=== PATIENT | female | born 1945 | race Caucasian/White ===

== ENCOUNTER 2017-10-04 09:19 | Emergency (ER) | payer MEDICARE, MEDICAID, SELFPAY ==
[2017-10-04 09:20] VITALS: BMI 32.9
--- NOTE | 2017-10-04 09:31 | ED.VISSUMM ---
- ER Visit Summary Date of Service: 10/04/17 Chief Complaint: [] Unresponsive at [facility] asystolic History of Present Illness: The patient is a 72 F [] found in [facility] bed asystolic unresponsive by [facility] staff paramedics were called on their arrival they found her to be asystolic on the monitor no vital signs immediately began ACLS protocol she was intubated IV established through I/O, she was given epinephrine transport to the hospital under ACLS. Her downtime is very long exact time unknown, on arrival she is asystolic she has no vital sign she is unresponsive cardiac echo shows no heartbeat. We continued aggressive CPR, breath sounds were symmetric, her abdomen was slightly distended she had a bandage over the right lower quadrant she had some scattered abrasions and contusions to her extremities possibly related to IV starts. Despite aggressive ACLS protocol management she remained asystolic never regained hemodynamic perfusing rhythm, persistent asystole failed to respond to resuscitation and she was declared 923 am Patient recently had what sounds like a reversal of with re anastomosis to remove colonoscopy bag a few days ago, she has a history of lung cancer, prior history for colon cancer, coronary artery disease COPD Physical Examination: [] ET Combitube in place, monitor shows asystole there is no heartbeat or pulse her breath sounds are symmetric the abdomen is obese slightly distended there is a bandage to the right lower abdomen there are scattered contusion and abrasions primarily to the upper extremities possibly a prior IV starts she is unresponsive Test Results: [] Emergency Department Course and Treatment: [] Given all the above we spoke with the family informed him of the above we will identify her family physician mario and proceed with further disposition Treatment Plan: [] Disposition: [] Transfer to care of [facility] pending conversation Impression: [] Asystole, failed to respond to ACLS, cardiopulmonary arrest This note was generated with [employer] dictation software. It may contain incorrect words, spelling, and punctuation that were not noted in review of the chart prior to signing ED Disposition - Plan for ED Patient: Chief Complaint: CPR Referrals: Malik Benavides MD [Primary Care Provider] -
--- NOTE | 2017-10-04 09:37 | ED.DCSUM_ITS ---
- ER Visit Summary Date of Service: 10/04/17 Chief Complaint: [] Unresponsive at [facility] asystolic History of Present Illness: The patient is a 72 F [] found in [facility] bed asystolic unresponsive by [facility] staff paramedics were called on their arrival they found her to be asystolic on the monitor no vital signs immediately began ACLS protocol she was intubated IV established through I/O, she was given epinephrine transport to the hospital under ACLS. Her downtime is very long exact time unknown, on arrival she is asystolic she has no vital sign she is unresponsive cardiac echo shows no heartbeat. We continued aggressive CPR, breath sounds were symmetric, her abdomen was slightly distended she had a bandage over the right lower quadrant she had some scattered abrasions and contusions to her extremities possibly related to IV starts. Despite aggressive ACLS protocol management she remained asystolic never regained hemodynamic perfusing rhythm, persistent asystole failed to respond to resuscitation and she was declared 923 am Patient recently had what sounds like a reversal of with re anastomosis to remove colonoscopy bag a few days ago, she has a history of lung cancer, prior history for colon cancer, coronary artery disease COPD Physical Examination: [] ET Combitube in place, monitor shows asystole there is no heartbeat or pulse her breath sounds are symmetric the abdomen is obese slightly distended there is a bandage to the right lower abdomen there are scattered contusion and abrasions primarily to the upper extremities possibly a prior IV starts she is unresponsive Test Results: [] Emergency Department Course and Treatment: [] Given all the above we spoke with the family informed him of the above we will identify her family physician mario and proceed with further disposition Treatment Plan: [] Disposition: [] Transfer to care of [facility] pending conversation Impression: [] Asystole, failed to respond to ACLS, cardiopulmonary arrest This note was generated with [employer] dictation software. It may contain incorrect words, spelling, and punctuation that were not noted in review of the chart prior to signing ED Disposition - Plan for ED Patient: Chief Complaint: CPR Referrals: Malik Benavides MD [Primary Care Provider] -
--- NOTE | 2017-10-04 09:47 | ED.RN ---
SEE CODE DOCUMENTATION
== END 2017-10-04 11:09 ==
PROVIDERS: Emergency Provider Emergency Medicine; Family Provider Family Medicine; PCP Family Medicine
DX: I46.9 Cardiac arrest, cause unspecified (principal); Z85.038 Personal history of other malignant neoplasm of large intestine; Z85.118 Personal history of other malignant neoplasm of bronchus and lung; I25.10 Atherosclerotic heart disease of native coronary artery without angina pectoris; J44.9 Chronic obstructive pulmonary disease, unspecified; Z98.890 Other specified postprocedural states
CPT/HCPCS: 92950; 99281; J7030; A4216